=== PATIENT | male | born 2000 | race Two or more races ===

== ENCOUNTER 2023-05-23 22:57 | Emergency (ER) | payer OTHER ==
[2023-05-23 23:07] VITALS: BMI 31.6
[2023-05-24] MEDS ORDERED: KETOROLAC TROMETHAMINE 15 MG/ML VIAL ONE (00:18)
[2023-05-24] MEDS: KETOROLAC TROMETHAMINE 30 MG/1 ML VIAL IM ONE (01:48)
[2023-05-24 04:12] VITALS: BP 125/60; PULSE 67; RESP 16; TEMP 97.7
[2023-05-24] MEDS ORDERED: IBUPROFEN 400 MG TABLET (FP) PO ONE (04:28)
[2023-05-24] MEDS: IBUPROFEN 400 MG TABLET (FP) PO ONE (04:31)
== END 2023-05-24 04:30 | disposition home or self-care (01) ==
LOC: JER 22:57
DX: N50.812 Left testicular pain (principal); R10.32 Left lower quadrant pain
CPT/HCPCS: 76870-TC; 99283-25

== ENCOUNTER 2023-10-28 17:19 | Emergency (ER) | payer OTHER ==
[2023-10-28 17:31] VITALS: BP 129/76; PULSE 71; RESP 18; TEMP 98.3; BMI 30.7
[2023-10-28 18:54] LABS: URINE APPEARANCE CLEAR; URINE BILIRUBIN NEGATIVE (NEGATIVE); URINE COLOR YELLOW; URINE GLUCOSE (UA) NEGATIVE (NEGATIVE); URINE KETONE TRACE (NEGATIVE); URINE LEUK ESTERASE NEGATIVE (NEGATIVE); URINE NITRITE NEGATIVE (NEGATIVE); URINE PROTEIN NEGATIVE (NEGATIVE); URINE UROBILINOGEN 0.2 mg/dL (0.2-1.0)
== END 2023-10-28 22:12 | disposition home or self-care (01) ==
LOC: JER 17:19
DX: R10.30 Lower abdominal pain, unspecified (principal); N50.812 Left testicular pain
CPT/HCPCS: 36415; 76705-TC; 76870-TC; 81003; 87086; 87491; 87591; 87661; 99284-25

== ENCOUNTER 2024-03-14 15:47 | Emergency (ER) | payer OTHER ==
[2024-03-14 16:00] VITALS: BP 157/78; PULSE 87; RESP 16; TEMP 98.2; BMI 29.9
== END 2024-03-14 19:26 | disposition home or self-care (01) ==
LOC: JERFT 15:47
DX: M79.671 Pain in right foot (principal); X50.1XXA Overexertion from prolonged static or awkward postures, initial encounter
CPT/HCPCS: 73610-TC-RT-FY; 73630-TC-RT-FY; 99283-25